=== PATIENT | male | born 1950 | race American Indian/Alaskan Native ===

== ENCOUNTER 2019-02-18 11:18 | Day surgery (SDC) | payer MEDICARE ==
[~2019-02-18 11:18] MED LIST: ANCEF/NS 1 GM/50 ML 1 GM/50 ML BAG IV NR
[2019-02-18] MEDS ORDERED: NACL 0.9% 1000 ML 1,000 ML ONE (11:19)
--- NOTE | 2019-02-18 12:28 | Anesthesia Day of Surgery ---
Anesthesia Day of Surgery - Day of Surgery Patient Examined: Yes Patient H&P Reviewed: Yes Patient is NPO: Yes
--- NOTE | 2019-02-18 12:28 | Anesthesia Consultation ---
Anesthesia Consult and Med Hx Date of service: 02/18/19 - Airway Anesthetic Teeth Evaluation: Good ROM Head & Neck: Adequate Mental/Hyoid Distance: Adequate Mallampati Class: Class II Intubation Access Assessment: Good - Pulmonary Exam CTA: Yes - Cardiac Exam Cardiac Exam: RRR - Pre-Operative Health Status ASA Pre-Surgery Classification: ASA3 Proposed Anesthetic Plan: General (ESRD, HTN, DM for GA, last echo showed EF 40- 45 %, last dialysis was Wed, K+today 4.3) - Pulmonary Hx Smoking: Yes (Former smoker) - Cardiovascular System Hx Hypertension: Yes Hx Coronary Artery Disease: Yes Hx Heart Attack/AMI: Yes (1994) - Central Nervous System Hx Psychiatric Problems: No - Endocrine Hx Renal Disease: Yes Hx End Stage Renal Disease: Yes - Hematic Hx Anemia: Yes - Other Systems Hx Cancer: No
[2019-02-18] MEDS ORDERED: ZOFRAN IV PRN (12:29)
[2019-02-18] MEDS ORDERED: DILAUDID IV PRN (12:29)
[2019-02-18] MEDS ORDERED: VERSED IV NR (13:00)
[2019-02-18] MEDS ORDERED: ANCEF/STERILE WATER 2 GM/20 ML IV NR (13:00)
[2019-02-18] MEDS ORDERED: NACL 0.9% 1000 ML 1,000 ML IV SCH (13:00)
[2019-02-18] MEDS ORDERED: XYLOCAINE MPF 2% ONE (13:03)
[2019-02-18] MEDS ORDERED: DECADRON ONE (13:03)
[2019-02-18] MEDS ORDERED: ZOFRAN ONE (13:03)
[2019-02-18] MEDS ORDERED: DIPRIVAN 10 MG/ML IV ONE (13:04)
[2019-02-18] MEDS ORDERED: SUBLIMAZE ONE (13:04)
[2019-02-18] MEDS ORDERED: HEPARIN 10,000 UNITS/10 ML ONE (13:11)
[2019-02-18] MEDS ORDERED: PROTAMINE SULFATE ONE (13:12)
[2019-02-18] MEDS ORDERED: GELFOAM TP ONE ×2 (13:12→14:29)
[2019-02-18] MEDS ORDERED: RECOTHROM TP ONE ×2 (13:12→14:29)
[2019-02-18] MEDS ORDERED: NACL 0.9% 250ML 250 ML ONE (13:12)
[2019-02-18] MEDS ORDERED: HEPARIN 10,000 UNITS/10 ML IR ONE (14:27)
[2019-02-18] MEDS ORDERED: NACL 0.9% 250ML IV ONE (14:28)
[2019-02-18] MEDS ORDERED: NACL 0.9% IR ONE (14:28)
[2019-02-18] MEDS ORDERED: ROXICODONE PO PRN (15:30)
--- NOTE | 2019-02-18 15:30 | Post Operative Note ---
Pre-op diagnosis: ESRD Post-op diagnosis: same Procedure: 1. Left Arm AV Graft Insertion 2. Left Forearm AV Fistula Ligation Anesthesia: GETA Surgeon: RAUL HARDEN Estimated blood loss: other (25ml) Pathology: none Condition: stable Disposition: PACU
--- NOTE | 2019-02-18 15:37 | Short Stay Summary ---
Short Stay Documentation Date of service: 02/18/19 - History H&P: obtained from office Past Medical History: ESRD - Allergies and Medications Current Medications: Allergies No Known Allergies Allergy (Unverified 02/17/19 10:34) Home Medications Medication Instructions Recorded Confirmed Last Taken Type AtorvaSTATin 40 mg PO DAILY 02/18/19 02/18/19 02/17/19 09:00 History ISOSORBIDE MONOnitrate 30 mg PO DAILY 02/18/19 02/18/19 02/17/19 09:00 History Metoprolol Tartrate 100 mg PO BID 02/18/19 02/18/19 02/17/19 19:00 History NovoLIN N 5 units SUB-Q BID 02/18/19 02/18/19 02/17/19 18:00 History Omeprazole 20 mg PO DAILY 02/18/19 02/18/19 02/17/19 09:00 History hydrALAZINE 50 mg PO TID 02/18/19 02/18/19 02/17/19 19:00 History Active Medications Cefazolin Sodium (Ancef/Sterile Water 2 Gm/20 Ml) 2 gm IV PREOP NR Stop: 02/18/19 18:00 Hydromorphone HCl (Dilaudid) 0.25 mg IV Q10MIN PRN PRN Reason: Pain, Moderate (4-6) Sodium Chloride (Nacl 0.9% 1000 Ml) 1,000 mls @ 42 mls/hr IV DIRECT CORWIN Last Admin: 02/18/19 12:55 Dose: 42 mls/hr Documented by: Midazolam HCl (Versed) 2 mg IV PREOP NR Stop: 02/18/19 23:59 Last Admin: 02/18/19 12:59 Dose: 2 mg Documented by: Ondansetron HCl (Zofran) 4 mg IV ONCE PRN PRN Reason: Nausea And Vomiting Oxycodone HCl (Roxicodone) 5 mg PO Q4H PRN PRN Reason: Pain, Moderate (4-6) - Physical exam General appearance: no acute distress Lungs: Clear to auscultation Extremities: no ischemia - Hospital course Hospital course: The patient was taken to the operating room and had a left arm av graft insertion and av fistula liagtion performed. Please refer to the operative note concerning details of the procedure. The patient tolerated the procedure well and was discharged home in stable condition. - Disposition Condition at discharge: Stable Disposition: DC-01 TO HOME OR SELFCARE - Discharge Diagnoses (1) ESRD (end stage renal disease) Status: Acute Short Stay Discharge Plan Follow up with: YUKI EAGLE [Other] - 7 Days
[2019-02-18] MEDS ORDERED: PROTAMINE SULFATE IV ONE (15:44)
--- NOTE | 2019-02-18 16:03 | Operative Report ---
STAFF SURGEON: Dr. Darvin Rock. PREOPERATIVE DIAGNOSIS: End-stage renal disease. POSTOPERATIVE DIAGNOSIS: End-stage renal disease. PROCEDURE PERFORMED: 1. Left arm AV graft insertion. 2. Left forearm AV fistula ligation. COMPLICATIONS: None. ESTIMATED BLOOD LOSS: 25 mL. ANESTHESIA: General. INDICATIONS FOR PROCEDURE: This is a 68-year-old gentleman with end-stage renal disease, on hemodialysis via right IJ Perm-A-Cath who has had issues with maturation of his forearm AV fistula and after multiple interventions, the patient was scheduled to undergo a new access with ligation of his current access. The patient was explained all the risks, benefits, alternatives of procedure, expressed understanding and wished to proceed. DESCRIPTION OF PROCEDURE: After appropriate consent was obtained, the patient was brought back to the operating room and placed on the operating table in supine position with left arm extended. The patient was given appropriate medication for general anesthesia and LMA placed without difficulty. The left arm was prepped and draped in the usual sterile fashion with ChloraPrep. Appropriate preoperative antibiotics were administered. Appropriate timeout was performed indicating correct patient, procedure, and site of procedure. I then began the operation by making a longitudinal incision near the antecubital fossa. This was carried through subcutaneous tissue with a combination of blunt dissection and electrocautery. Dissection was carried through the bicipital aponeurosis which allowed to expose the brachial artery, which was found to be suitable for arterial inflow and was mobilized for appropriate distance both proximally and distally. We then made a transverse incision near the axilla. This was carried through subcutaneous tissue with a combination of blunt dissection and electrocautery. Dissection was continued through the fascia overlying the axillary neurovascular bundle. Axillary vein was identified and found to be suitable for venous outflow. We then proceeded to create a subcutaneous tunnel between the two incision sites bringing through a 4-7 mm Propaten graft. The patient was given 5000 units of unfractionated heparin. After appropriate timeout elapsed, the graft was appropriately spatulated. Vascular clamps were placed on the brachial artery, both proximally and distally. Longitudinal arteriotomy was made, extended with Bedolla scissors and then end-to-side anastomosis was performed with a running 6-0 Prolene suture. Once complete, flow was established through the graft. A nice pulsatile flow through the graft. The graft was then cut to an appropriate length, spatulated. Vascular clamps were then placed on the axillary vein, both proximally and distally. Longitudinal venotomy was performed and extended with [place]olla scissors. End-to-side anastomosis was performed with a running 5-0 Prolene suture. Once complete, flow was reestablished through the graft with a nice palpable thrill. The patient was given protamine for heparinization reversal. We then looked to obtain hemostasis along the suture lines and we obtained with hemostatic agents. Once we were satisfied with hemostasis, then proceeded to close the wounds with interrupted 3-0 PDS for deep subcutaneous layer and the skin was approximated with radha. We then turned our attention to the forearm AV fistula. I made a transverse incision overlying the AV fistula. This was carried through subcutaneous tissue with a combination of blunt dissection and electrocautery, the AV fistula was identified and was then ligated with 0 silk suture x 2. Once complete, there was no flow felt distal to the ligation. We then proceeded to close the wound, approximated with deep subcutaneous layer with 3-0 PDS and the skin was approximated with radha. Appropriate dressing was placed. The patient tolerated the procedure well, emerged from general anesthesia, had the LMA removed and was sent to recovery in stable condition. All sponge, instrument and needle counts were correct at completion of the operation. JOB# [id number] CARIN/CARLY
--- NOTE | 2019-02-18 18:24 | Post Anesthesia Evaluation ---
- Post Anesthesia Evaluation Patient Participated: Yes Airway Patent: Yes Stable Respiratory Function: Yes Nausea/Vomiting: No Temp > 96.8F: Yes Pain Manageable: Yes Adequeate Hydration: Yes Anesthesia Complications: No Block Receding Appropriately: Not Applicable Patient on Ventilator: No
[2019-02-18 19:09] VITALS: BP 148/75
== END 2019-02-18 18:55 | disposition home or self-care (01) ==
LOC: OR 11:18
PROVIDERS: ATTEND Surgery Vascular Surgery
DX: I12.0 Hypertensive chronic kidney disease with stage 5 chronic kidney disease or end stage renal disease (principal); E11.22 Type 2 diabetes mellitus with diabetic chronic kidney disease; N18.6 End stage renal disease; I25.10 Atherosclerotic heart disease of native coronary artery without angina pectoris; I25.2 Old myocardial infarction; E78.00 Pure hypercholesterolemia, unspecified; K21.9 Gastro-esophageal reflux disease without esophagitis; M19.90 Unspecified osteoarthritis, unspecified site; Z87.891 Personal history of nicotine dependence; Z79.899 Other long term (current) drug therapy; Z98.49 Cataract extraction status, unspecified eye; Z99.2 Dependence on renal dialysis; Z98.890 Other specified postprocedural states; Z86.2 Personal history of diseases of the blood and blood-forming organs and certain disorders involving the immune mechanism
CPT/HCPCS: 36830; 37607; 82803; 82962; 86850; 86900; 86901; A4649; C1768; J0690; J1100; J1644; J2250; J2405; J2704; J2720; J3010; J7030; J7050